=== PATIENT | male | born 1970 | race Two or more races ===

== ENCOUNTER → 2025-02-02 | Outpatient (CLI) | payer MEDICAID, SELFPAY ==
--- NOTE | 2025-02-02 09:00 | XR_ITS ---
Examination: Esophagram standard Upright PA chest single view Upright soft tissue lateral neck single view Fluoroscopy 15 spot fluoroscopic films of the esophagus Exam date and time: February 02, 2025 0911 hours INDICATIONS: Difficulty swallowing 1 year. TECHNIQUE AND FINDINGS: Upright PA chest single view demonstrates normal heart size lungs are clear Soft tissue lateral neck demonstrates no prevertebral soft tissue prominence Patient swallowed thin barium with 16 spot films of the esophagus obtained Primary peristaltic esophageal waves noted Moderate intermittent gastroesophageal reflux No constricting esophageal lesion no mucosal ulceration IMPRESSION: Moderate intermittent gastroesophageal reflux Fluoroscopy 0.14 minute 15 spot fluoroscopic films of the esophagus
== END | disposition home or self-care (01) ==
PROVIDERS: PCP Family Medicine; Referring Provider Family Medicine; Visit Provider Family Medicine
DX: K21.9 Gastro-esophageal reflux disease without esophagitis (principal)
CPT/HCPCS: 74220; A4699